=== PATIENT | female | born 1945 | race Caucasian/White ===

== ENCOUNTER → 2018-07-20 | Outpatient (CLI) | payer MEDICARE, OTHER ==
[2018-07-20 14:50] VITALS: BP 160/68; PULSE 87; RESP 18; TEMP 96.1; BMI 30.7
--- NOTE | 2018-07-20 15:32 | P.GSHP ---
History of Present Illness H&P Date: 07/20/18 Chief Complaint: abnromal mammogram of the left breast Karley is a 73-year-old white female who presents for breast evaluation. She underwent a bilateral mammogram in January 2018 at which time she was noted to have some microcalcifications in the left breast. It was recommended that she undergo a 6 month follow-up of the left breast. She presents now with a repeat left breast mammogram which reveals pleomorphic calcifications in the 12 o' clock position of the left breast. Stereotactic left breast biopsy has been recommended. There is also a question of an associated density. The patient does not feel any masses or lumps in either breast. She has no nipple discharge or skin changes. She has no history of any recent trauma or infection of the breast. Family history: 1. maternal grandmother: cancer ?type 2. paternal uncle: cancer liver 3. paternal aunt: liver cancer Hormonal History: menarche: 15 : none menopause: 51 BCP:none hormones: none Past surgical history: 1. Left elbow 2. Right ankel 3. breast biopsy left in operating room Past Medical History: 1. seizures 2. GERD 3. mental retardation Social History: smoke: none alcohol: none drugs: none - Constitutional Constitutional: Denies chills, Denies fever - EENT Eyes: denies blurred vision, denies pain Ears: deny: decreased hearing, tinnitus Ears, nose, mouth and throat: Denies headache, Denies sore throat - Breasts Breasts: bilateral: as per HPI - Cardiovascular Cardiovascular: Denies chest pain, Denies shortness of breath - Respiratory Respiratory: Reports cough - Gastrointestinal Comment: GERD Gastrointestinal: Reports constipation - Genitourinary (Female) Genitourinary: Denies dysuria, Denies hematuria - Menstruation Menstruation: Reports postmenopausal - Musculoskeletal Comment: arthritis - Integumentary Integumentary: Denies pruritus, Denies rash - Neurological Neurological: Denies numbness, Denies weakness - Psychiatric Comment: mental retardation: 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 - Endocrine Endocrine: Denies fatigue, Denies weight change - Hematologic/Lymphatic Comment: none - Allergic/Immunologic Allergic/Immunologic: Reports as per HPI Past Medical History Past Medical History: Osteoarthritis (OA), Seizure Disorder Additional Past Medical History / Comment(s): GERD History of Any Multi-Drug Resistant Organisms: None Reported Smoking Status: Never smoker Medications and Allergies Home Medications Medication Instructions Recorded Confirmed Type Ascorbic Acid [Vitamin C] 500 mg PO DAILY 07/12/18 07/12/18 History Cholecalciferol (Vitamin D3) 500 unit PO DAILY 07/12/18 07/12/18 History [Vitamin D3] Levothyroxine Sodium [Synthroid] 88 mcg PO DAILY 07/12/18 07/12/18 History Omeprazole 1 each PO DAILY 07/12/18 07/12/18 History Pravastatin Sodium [Pravachol] 40 mg PO DAILY 07/12/18 07/12/18 History lamoTRIgine [LaMICtal] 150 mg PO BID 07/12/18 07/12/18 History lamoTRIgine [LaMICtal] 200 mg PO DAILY 07/12/18 07/12/18 History levETIRAcetam 1,599 mg PO BID 07/12/18 07/12/18 History risperiDONE [RisperDAL] 1 mg PO HS 07/12/18 07/12/18 History risperiDONE [RisperDAL] 2 mg PO DAILY 07/12/18 07/12/18 History Allergies Allergy/AdvReac Type Severity Reaction Status Date / Time No Known Allergies Allergy Verified 07/20/18 14:58 Surgical - Exam Vital Signs Temp Pulse Resp BP Pulse Ox 96.1 F L 87 18 160/68 96 07/20/18 14:46 07/20/18 14:46 07/20/18 14:46 07/20/18 14:46 07/20/18 14:46 BMI 30.8 - General obese - Eyes normal ocular movement - ENT no hearing loss, no congestion - Neck no masses, trachea midline - Respiratory normal respiratory effort, clear to auscultation - Cardiovascular Rhythm: regular Heart Sounds: normal: S1, S2 - Abdomen Abdomen: soft - Neurologic no disoriented, no combative - Musculoskeletal normal gait, normal posture - Psychiatric oriented to time, oriented to person, oriented to place, speech is normal, memory intact Breast Exam: Right breast: Multiple positional exam no dominant masses or nodules of concern Right axilla: No adenopathy of concern Left breast: Well-healed scar from prior surgery, multiple positional exam no dominant masses or nodules of concern Left axilla: No adenopathy of concern There appears to be fungal infection underneath both breast which is somewhat mild in nature Results Mammogram results reviewed Assessment and Plan Assessment: Impression: 1. Radiographic abnormality left breast at 12:00 2. Fibrocystic breast changes 3. GERD 4. Seizure disorder 5. Osteoarthritis 6. mental retardation 7. Fungal infection underneath both breast Plan: 1. Stereotactic core biopsy left breast 2. Medical management of medical conditions 3. Nystatin cream under both breast for fungal infection 4. Follow-up 1 week after stereotactic core biopsy Risks and benefits of stereotactic biopsy as well as alternatives discussed with the patient and her sister. They understand and wish to proceed. CC: Dr. Lee ([place])
== END | disposition home or self-care (01) ==
LOC: WWCWWP 14:37
PROVIDERS: ATTEND Surgery
DX: Z53.9 Procedure and treatment not carried out, unspecified reason (principal)

== ENCOUNTER → 2018-07-27 | Day surgery (SDC) | payer MEDICARE, OTHER ==
[2018-07-27 07:27] VITALS: RESP 16; BMI 33.8
--- NOTE | 2018-07-27 08:58 | P.OP ---
Date of Procedure: 07/27/18 Preoperative Diagnosis: Left breast microcalcifications of concern Postoperative Diagnosis: same Procedure(s) Performed: Left breast stereotactic core biopsy Anesthesia: local Surgeon: Shima Yun Estimated Blood Loss (ml): 1 Pathology: other (Breast tissue) Condition: stable Disposition: same day Indications for Procedure: Pleomorphic calcifications left breast at 12:00 Operative Findings: calcifications left breast tissue Description of Procedure: The patient is a 73-year-old white female who was noted to have grouped pleomorphic calcifications at the 12 o'clock position of the left breast. The patient was recommended to undergo a stereotactic core biopsy. Risks and benefits of the procedure were discussed with the patient and her sister and they wish to proceed. The patient was taken to the stereotactic core biopsy room. She was positioned on the low weight at stereotactic core biopsy table. The approach to do the procedure was a lateral to medial approach. The lesion was in the left breast at the 12 o'clock position. A pug mill operator film was obtained. The area of concern was identified. Stereo pair was obtained. The lesion of concern was targeted and the target coordinates were transmitted to the table. The breast was prepped using Betadine. The needle apparatus was cc-year-old. The needle was driven to the correct coordinates. A 9-gauge vacuum assisted rotating cutting needle was used to obtain the specimen. 20 mL of 1% lidocaine was used to anesthetize the skin. After the needle was driven to the correct coordinates prefire films were obtained. This was noted to be in the correct location the needle was fired and post-fire films were obtained. Again the needle was noted to be in the correct location, therefore 13 core biopsy specimens were obtained. Radiograph of the specimen revealed the calcifications of concern had been sampled. A suture marked Top-grader marker was placed. Radiograph revealed this was in the correct location. The patient tolerated the procedure in stable condition. The specimen was sent for pathology. The patient will follow-up with Dr. Diggs in 1 week.
[2018-07-27 09:36] VITALS: BP 143/74; PULSE 67; TEMP 98
--- NOTE | 2018-07-27 09:52 | MM ---
EXAMINATION TYPE: MG stereo VAD BX LT DATE OF EXAM: 07/27/2018 COMPARISON: Outside mammograms dated 06/20/2018 CLINICAL HISTORY: 7 mm group of coarse heterogenous calcifications in the upper outer quadrant of the left breast at middle depth for which stereotactic biopsy was recommended TECHNIQUE: Stereotactic guided core biopsy of left breast calcifications. FINDINGS: The procedure of stereotactic guided core biopsy was explained to the patient. Benefits, alternatives, and risks were discussed. An informed consent was then obtained. The safest pathway for biopsy was chosen. Safest pathway was lateral to medial approach. I performed the localization, then surgeon, Dr. Dontae Kunz performed the remainder of the procedure. A vacuum assisted biopsy gun was used to obtain multiple core samples of a 7 mm group of coarse heterogenous calcifications in the upper outer quadrant of the left breast at middle depth. The patient tolerated the procedure well without any immediate complication. The patient was kept in the radiology department for short stay after the procedure and then discharged home in stable condition. Targeted calcifications are identified in specimen mammogram. Post biopsy mammogram shows the clip to appear in satisfactory position relative to the targeted area of concern on the preprocedure images. IMPRESSION: SUCCESSFUL, UNCOMPLICATED STEREOTACTIC GUIDED CORE BIOPSY OF A 7 MM GROUP OF COARSE HETEROGENOUS CALCIFICATIONS IN THE UPPER OUTER QUADRANT OF THE LEFT BREAST AT MIDDLE DEPTH LEFT BREAST, FULL PATHOLOGY RESULTS TO FOLLOW. Pathology Results: Benign LEFT BREAST, NEEDLE CORE BIOPSIES: Fibrocystic spectrum lesion with coarse intraductal mineralizations. Recommendation Follow up mammogram of the left breast in 6 months. NICHOLASD
== END ==
LOC: RADMAMWWP 06:35
PROVIDERS: ATTEND Surgery
DX: N60.12 Diffuse cystic mastopathy of left breast (principal); R92.1 Mammographic calcification found on diagnostic imaging of breast
CPT/HCPCS: 88305; 19081; A4648; J2001

== ENCOUNTER → 2018-08-03 | Outpatient (CLI) | payer MEDICARE, OTHER ==
[2018-08-03 12:46] VITALS: BP 141/65; PULSE 69; RESP 18; TEMP 96.1; BMI 30.7
--- NOTE | 2018-08-03 13:09 | P.PN ---
Subjective Progress Note Date: 08/03/18 Principal diagnosis: Fibrocystic breast changes The patient is a 73-year-old white female who is status post left breast stereot[place] [id number]. Pathology revealed fibrocystic breast changes. She has no complaints related to the biopsy. Objective - Vital Signs Vital signs: Vital Signs Temp 96.1 F L 08/03/18 12:42 Pulse 69 08/03/18 12:42 Resp 18 08/03/18 12:42 BP 141/65 08/03/18 12:42 Pulse Ox 96 08/03/18 12:42 Intake & Output 08/02/18 08/03/18 08/03/18 18:59 06:59 18:59 Weight 83.915 kg - Exam BMI 30.8 - Constitutional General appearance: Present: obese - EENT Eyes: Present: EOMI ENT: Present: hearing grossly normal - Neck Neck: Present: normal ROM - Respiratory Respiratory: bilateral: CTA - Cardiovascular Rhythm: regular Heart sounds: normal: S1, S2 - Integumentary Integumentary Comment(s): Examination of the biopsy site reveals mild ecchymosis No evidence of hematoma No evidence of any infection - Psychiatric Psychiatric: Present: appropriate affect Assessment and Plan Assessment: Impression: 1. Status post stereotactic core biopsy of the left breast, pathology benign fibrocystic disease 2. Fibrocystic breast changes 3. GERD 4. Seizure disorder 5. Osteoarthritis 6. Mental retardation 7. Fungal infection underneath both breasts Plan: 1. Repeat left breast mammogram and exam in 6 months time 2. Medical management of medical conditions 3. Resolved fungal infection at this time Cc: Dr. Lee ([place])
== END | disposition home or self-care (01) ==
LOC: WWCWWP 12:24
PROVIDERS: ATTEND Surgery
DX: Z53.9 Procedure and treatment not carried out, unspecified reason (principal)

== ENCOUNTER → 2018-08-16 | Outpatient (CLI) | payer MEDICARE, OTHER ==
[2018-08-16 16:35] VITALS: BP 171/79; PULSE 70; RESP 18; TEMP 97.6; BMI 30.7
--- NOTE | 2018-08-16 16:51 | P.PN ---
Subjective Progress Note Date: 08/16/18 Principal diagnosis: Elenita is a 73-year-old white female who underwent a left breast stereotactic core biopsy on . Pathology revealed fibrocystic spectrum lesion with course intraductal mineralization's. The patient's sister is with her and states that she has had some bleeding from this site. The patient is a special needs patient, she is not complaining of any pain. The patient's sister states she is to change the Band-Aid 3 times and noticed some oozing on the Band-Aid. Objective - Vital Signs Vital signs: Vital Signs Temp 97.6 F 08/16/18 16:22 Pulse 70 08/16/18 16:22 Resp 18 08/16/18 16:22 BP 171/79 08/16/18 16:22 Pulse Ox 97 08/16/18 16:22 - Constitutional General appearance: Present: average body habitus - EENT Eyes: Present: EOMI - Respiratory Respiratory: - Cardiovascular Heart sounds: - Integumentary Integumentary Comment(s): Core biopsy site in the left breast is evaluated. There is some mild ecchymosis with a small hematoma posterior to the biopsy site. There is no evidence of any infection, there is no evidence of any active bleeding Assessment and Plan Assessment: Impression: 1. Patient status post stereotactic core biopsy left breast, pathology benign 2. Patient and her sister seem concerned that she has had some oozing from the biopsy site, at this time there is no evidence of any active bleeding, there is no evidence of any infection 3. Mental retardation 4. Osteoarthritis 5. Seizure disorder 6. GERD 7. Fungal infection under both breasts for which she has been treated with nystatin Plan: 1. Patient pathology discussed with herself and her sister 2. Medical management of medical conditions 3. Repeat left breast mammogram and physician exam in 6 months 4. Resolution of fungal infection under both breast CC: DR. Lee ([place])
== END | disposition home or self-care (01) ==
LOC: WWCWWP 15:35
PROVIDERS: ATTEND Surgery
DX: Z53.9 Procedure and treatment not carried out, unspecified reason (principal)